=== PATIENT | male | born 1970 | race Caucasian/White ===

== ENCOUNTER 2017-02-26 16:51 | Emergency (ER) | payer SELFPAY ==
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
[2017-02-26] MEDS ORDERED: MUPIROCIN 2% OINT 22GM TUBE TP ONE (17:55)
[2017-02-26] MEDS ORDERED: OPTH IRRIGATION SOLUTION 120 ML BTL OP ONE ×2 (17:58→17:59)
[2017-02-26] MEDS ORDERED: TETRACAINE HCL/PF 5% OPTH SOL OP ONE ×2 (17:58→17:59)
[2017-02-26 18:11] VITALS: BP 138/86
== END 2017-02-26 18:08 | disposition home or self-care (01) ==
LOC: ED 16:51
DX: T20.10XA Burn of first degree of head, face, and neck, unspecified site, initial encounter (principal); T20.212A Burn of second degree of left ear [any part, except ear drum], initial encounter; T20.112A Burn of first degree of left ear [any part, except ear drum], initial encounter; X58.XXXA Exposure to other specified factors, initial encounter; Y93.9 Activity, unspecified; Y99.9 Unspecified external cause status
CPT/HCPCS: 16000; 16020; 99283

== ENCOUNTER 2017-08-03 19:19 | Emergency (ER) | payer SELFPAY ==
[2017-08-03] MEDS ORDERED: LORazepam 2 MG/ML VIAL IVP ONE (19:31)
--- NOTE | 2017-08-03 19:37 | ED Physician Documentation ---
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 Pain is sharp, right sided and radiates into right neck. HX DC 7 years ago with 2-3 stens placed. Sees cardiology at [facility]. Also complains of stabbing pains into left leg. Hyperventilates, complains of hand pain and tingling, wants cuffs removed. Says wants divorce and we should just let him . Given 324 mg asa and nitro x2 per EMS. HX anxiety and kidney stone. Onset: minutes Timing: sudden onset Last known Well Date: 08/03/17 Last Known Well Time: 15:30 (asleep till told hiim she wanted divorce) Context: emotional upset Worsened By: nothing Relieved By: nitroglycerin (eased, not gone) - ROS CONST: none - PAST HX DC risk factors: AMI DVT/PE Risk Factors: none TAD/AAA risk factors: none Neuro deficit: none Lung disease: COPD, other (says his lungs are "long") Surgeries/Procedures: cardiac cath, cardiac stent (2-3?) Allergies/Adverse Reactions: Allergies Allergy/AdvReac Type Severity Reaction Status Date / Time Penicillins Allergy Severe Anaphylaxis Verified 08/03/17 20:46 Home Medications: Ambulatory Orders Medication Instructions Recorded Aspirin EC [Ecotrin] 81 mg PO QD 11/19/12 Clopidogrel Bisulfate [Clopidogrel] 75 mg PO DAILY 11/19/12 Lisinopril [Prinivil] 2.5 mg PO DAILY 11/19/12 Nitroglycerin [Nitrostat] 0.4 mg SL Q5MIN PRN #30 tab.subl 11/19/12 Pravastatin Sodium [Pravastatin 80 mg PO DAILY 11/19/12 Sodium] Spironolactone [Aldactone] 25 mg PO DAILY 11/19/12 - SOCIAL HX Smoking History: quit greater than 1 year, cigarettes (2 PPD 25 years) Alcohol Use: none (denies) Drug Use: none (denies) - FAMILY HX Family HX: other (no significant) - VITAL SIGNS Vital Signs: Vital Signs Temp Pulse Resp BP Pulse Ox 138/86 02/26/17 18:09 - REVIEWED ASSESSMENTS Nursing Assessment Reviewed: Yes Vitals Reviewed: Yes Progress - Progress Progress: 1954, asleep Patient Study Name: ROHITH LEE Date: Aug 03, 2017 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 History: CHEST PAIN, FORMER SMOKER (Hx) Findings: No comparison studies are provided. The cardiac and mediastinal silhouettes are normal. The lungs are clear. There is no evidence of pulmonary infiltrate or pleural effusion. The trachea is midline and the aortic arch contour is normal. The pulmonary vascularity is within normal limits. Impression: No acute cardiopulmonary abnormality. Electronically signed on Aug 03, 2017 8:21:17 PM BRICK KILN WORKER by: Yakelin Sarah [id number], has slept since Ativan. Wakes easily. UDS neg. Serial troponins neg. - EKG/XRAY/CT EKG: NSR, nonspecific ST T wave chg Comments: 90 BPM ED Results Lab/Radiology - Orders Orders: ED Orders Category Date Time Status Continuous EKG monitoring Q1H Care 08/03/17 19:33 Ordered CHEST 1 VIEW [RAD] Stat Exams 08/03/17 Ordered CBC/PLATELET/DIFF Routine Lab 08/03/17 Ordered CMP Routine Lab 08/03/17 Ordered DRUG SCREEN 7 WITH ETHANOL Stat Lab 08/03/17 Ordered TROPONIN I (cTnI) Stat Lab 08/03/17 Ordered URINALYSIS Routine Lab 08/03/17 Ordered LORazepam [Ativan] Med 08/03/17 19:31 Once 1 mg IVP NOW ONE NORMAL SALINE @ 100 MLS/HR(1000ml) Med 08/03/17 20:00 Ordered 0.9 % Sodium Chloride [Normal Saline] 1,000 ml IV Q10H EKG WITH COMPARISON Stat Ther 08/03/17 Ordered Chest Pain Physical Exam - EXAM General Appearance: severe distress (yelling, tachypneic), anxious EENT: eye inspection normal, ENT inspection normal, pharynx normal (Mallampati 2 ) Neck: nml inspection, other (no HJR) Respiratory: chest non-tender, nml breath sounds CVS: reg. rate & rhythm, no murmur, bilateral BP's asymmetrical, other ( peripheral pulses 2+) Abdomen: soft, normal bowel sounds, no distension, non-tender Skin: warm/dry, normal color Extremities: normal range of motion, no evidence of injury, no edema Neuro: CN's nml as tested, motor nml, sensation nml, other (anxious) Discharge Clincal Impression: Anxiety Referrals: Connie Lal MD [Primary Care Provider] - 2 Days Additional Instructions: The Troponin results indicate you were not having heart problems. Follow up with your provider as needed. Condition: Fair Disposition: 01 HOME, SELF-CARE Decision to Admit: NO Decision Time: 22:25
[2017-08-03 19:58] LABS: BASOPHILS % 0.6 (0.0-1.5); EOSINOPHILS % 3.1 % (0.0-6.8); MEAN CORPUSCULAR HEMOGLOBIN 30.8 pg (28.0-34.0); MEAN CORPUSCULAR VOLUME 92.5 fl (80.0-100.0); MONOCYTES % 4.3 % (0.0-11.0); NEUTROPHILS # 4.7 # k/uL (1.4-7.7)
[2017-08-03] MEDS ORDERED: 0.9 % SODIUM CHLORIDE 1,000 ML IV SCH (20:00)
[2017-08-03 20:01] LABS: eGFR (African) > 60; eGFR (Non-African) > 60
[2017-08-03] MEDS ORDERED: 0.9 % SODIUM CHLORIDE 1,000 ML IV ONE (20:03)
[2017-08-03 22:47] VITALS: BP 161/92
[2017-08-04 03:35] LABS: APPEARANCE,URINE CLEAR (CLEAR); COLOR,URINE YELLOW (YELLOW)
[2017-08-04 03:36] LABS: OCCULT BLOOD,URINE NEGATIVE (NEGATIVE); UROBILINOGEN URINE 0.2 Eu (0.2-1.0)
[2017-08-04 03:41] LABS: CANNABINOIDS NEGATIVE ng/mL (< 50); METHYLENEDIOXYMETHAMPHETAMINE NEGATIVE ng/mL (<500)
--- NOTE | 2017-08-04 13:43 | Diagnostic Imaging Report ---
LEA ALEXIS [facility] [address] [facility] [address] [place] [address]. 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 History: CHEST PAIN, FORMER SMOKER (Hx) Findings: No comparison studies are provided. The cardiac and mediastinal silhouettes are normal. The lungs are clear. There is no evidence of pulmonary infiltrate or pleural effusion. The trachea is midline and the aortic arch contour is normal. The pulmonary vascularity is within normal limits. Impression: No acute cardiopulmonary abnormality. Electronically signed on Aug 03, 2017 8:21:17 PM BANQUET HOUSEPERSON by: Yakelin LARSON
== END 2017-08-03 22:37 | disposition home or self-care (01) ==
LOC: ED 19:19
DX: F41.9 Anxiety disorder, unspecified (principal); R07.89 Other chest pain
CPT/HCPCS: 71010; 80053; 80320; 80377; 81002; 84484; 85025; 85610; 93005; J2060; J7030; 96374; 99283; G0480; G0481; S1016

== ENCOUNTER 2017-09-04 23:39 | Emergency (ER) | payer SELFPAY ==
[2017-09-04] MEDS ORDERED: NITROGLYCERIN 0.4 MG TAB.SUBL SL ONE ×2 (23:47→23:48)
[2017-09-04] MEDS ORDERED: ASPIRIN 81 MG CHEW TAB ONE (23:47)
[2017-09-04] MEDS ORDERED: 0.9 % SODIUM CHLORIDE 1,000 ML IV ONE (23:48)
[2017-09-04] MEDS ORDERED: ASPIRIN 81 MG CHEW TAB PO ONE (23:50)
--- NOTE | 2017-09-05 00:04 | ED Physician Documentation ---
Chest Pain - HISTORIAN Historian: patient - HPI Chief Complaint: Chest Pain Onset: hours (1 hour) Last known Well Date: 09/04/17 Last Known Well Time: 23:00 Context: rest, emotional upset Severity: severe (7/10) Quality: pressure, tightness, like prior KS Chest Pain Radiation: no radiation Chest Pain Signs/Symptoms: denies: nausea, diaphoresis, tachypnea, tachycardia, palpitations, weakness Worsened By: nothing Relieved By: nothing Further Comments: yes (47 year old male patient brought in by [facility] staff for complaint of chest pain. Patient states CP started about 1 hour ago. States pain is "like my last KS", denies nausea, denies SOB, c/o radiation to left hand. Patient was at rest when pain started. Has been at [facility] for past 1-2 months. RR 30-32.) - ROS CONST: none MS/LYMPH: none GI/: denies: abdominal pain, vomiting, nausea, diarrhea EYES/ENT: none SKIN/ENDO: none NEURO/PSYCH: headache - PAST HX KS risk factors: hypertension, cardiac disease (10/2010 - stent to LAD; diagnostic cath 2012, 2013, 10/2014 - LAD patent in all studies, no other intervention), other (HLD) DVT/PE Risk Factors: none TAD/AAA risk factors: none Neuro deficit: none GI disease: none Lung disease: none Surgeries/Procedures: cardiac cath Allergies/Adverse Reactions: Allergies Allergy/AdvReac Type Severity Reaction Status Date / Time Penicillins Allergy Severe Anaphylaxis Verified 09/05/17 00:34 Home Medications: Ambulatory Orders Medication Instructions Recorded Aspirin EC [Ecotrin] 81 mg PO QD 11/19/12 Clopidogrel Bisulfate [Clopidogrel] 75 mg PO DAILY 11/19/12 Lisinopril [Prinivil] 2.5 mg PO DAILY 11/19/12 Nitroglycerin [Nitrostat] 0.4 mg SL Q5MIN PRN #30 tab.subl 11/19/12 Pravastatin Sodium [Pravastatin 80 mg PO DAILY 11/19/12 Sodium] Spironolactone [Aldactone] 25 mg PO DAILY 11/19/12 - SOCIAL HX Smoking History: non-smoker Alcohol Use: heavy (history of abuse) - FAMILY HX Family HX: CAD over 55 - VITAL SIGNS Vital Signs: Vital Signs Temp Pulse Resp BP Pulse Ox 161/92 08/03/17 22:43 - REVIEWED ASSESSMENTS Nursing Assessment Reviewed: Yes Vitals Reviewed: Yes Progress - Progress Progress: No change in CP after 2 nitro; chest pain worse with palpation, reproducible. 0035 Call to [facility], reviewed cardiac history and cath reports. Initial intervention 2010 - stent to LAD, diagnostics caths 2011 and 2014 showed patent LAD. Troponin negative at present with normal EKG, no changes as compared with previous. Will keep patient in ER and recheck Trop at 0300. Updated patient on plan of care. Agrees with plan. 0330 Troponin negative. Discharged home with [facility] staff - EKG/XRAY/CT EKG: rhythm (SR, rate 67, no acute changes) ED Results Lab/Radiology - Orders Orders: ED Orders Category Date Time Status Continuous EKG monitoring Q30M Care 09/04/17 23:48 Active Continuous Pulse Oximetry Q30M Care 09/04/17 23:[address] IV Lock 1T Care 09/04/17 23:48 Active CHEST 1VIEW [RAD] Stat Exams 09/04/17 23:53 Ordered CBC/PLATELET/DIFF Stat Lab 09/04/17 23:48 Ordered CMP Stat Lab 09/04/17 23:48 Ordered TROPONIN I (cTnI) Stat Lab 09/04/17 23:48 Ordered Urine drug screen [DRUG SCREEN URINE MEDICAL ONLY] Stat Lab 09/04/17 23:48 Ordered 0.9 % Sodium Chloride [Normal Saline] 1,000 ml Med 09/04/17 23:48 Discontinued IV NOW Aspirin Med 09/04/17 23:47 Discontinued 324 mg .ROUTE .STK-MED ONE Aspirin Med 09/04/17 23:50 Discontinued 324 mg PO NOW ONE Nitroglycerin [Nitroquick] Med 09/04/17 23:47 Discontinued 0.4 mg SL .STK-MED ONE Nitroglycerin [Nitroquick] Med 09/04/17 23:48 Discontinued 0.4 mg SL NOW ONE EKG WITH COMPARISON Stat Ther 09/04/17 23:48 Ordered Chest Pain Physical Exam - EXAM General Appearance: anxious EENT: eye inspection normal, DUNG Respiratory: no resp. distress, nml breath sounds, other (chest pain; reproducible with palpation) CVS: reg. 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
[2017-09-05] MEDS ORDERED: KETOROLAC TROMETHAMINE 30 MG/1ML VIAL IVP ONE (00:07)
[2017-09-05] MEDS ORDERED: NITROGLYCERIN 0.4 MG TAB.SUBL SL ONE (00:07)
[2017-09-05 00:19] LABS: BASOPHILS % 0.4 (0.0-1.5); EOSINOPHILS % 1.6 % (0.0-6.8); MEAN CORPUSCULAR HEMOGLOBIN 30.9 pg (28.0-34.0); MEAN CORPUSCULAR VOLUME 92.5 fl (80.0-100.0); MONOCYTES % 3.7 % (0.0-11.0); NEUTROPHILS # 5.7 # k/uL (1.4-7.7)
--- NOTE | 2017-09-05 00:21 | Diagnostic Imaging Report ---
KP JOSÉ (SKI TOP TRIMMER) - ER [facility] [address] [facility].[address] [id number] Report Submission Date: Sep 05, 2017 12:11:46 AM NORMALIZER Patient Study Name: ROHITH LEE Date: Sep 04, 2017 11:57:49 PM NORMALIZER Modality Type: DX Gender: M Description: CHEST : 70 Institution: [facility] Physician: KP JOSÉ (SKI TOP TRIMMER) - ER Portable chest Clinical history: PT STATES CHEST PAIN X 1 HR Findings: Examination of the chest in single portable AP view demonstrates the lungs to be clear. Cardiovascular and mediastinal silhouettes are within normal limits. Monitor leads superimpose the chest. Impression: 1. Negative chest. Electronically signed on Sep 05, 2017 12:11:46 AM NORMALIZER by: Marc LARSON
[2017-09-05 00:25] LABS: eGFR (African) > 60; eGFR (Non-African) > 60
[2017-09-05 04:02] VITALS: BP 121/63
== END 2017-09-05 03:24 | disposition home or self-care (01) ==
LOC: ED 23:39
DX: R07.89 Other chest pain (principal)
CPT/HCPCS: 71045; 80053; 84484; 85025; J1885; J7030; 96365; 96375; 99283; S1016

== ENCOUNTER 2017-09-08 16:04 | Emergency (ER) | payer SELFPAY ==
[2017-09-08 16:24] VITALS: BP 105/61
--- NOTE | 2017-09-08 16:24 | ED Physician Documentation ---
General Adult - HISTORIAN Historian: patient - HPI Chief Complaint: General Adult Additional Information: Patient was seen in the ED on Sep 03 for chest pain. The next day he noticed that he was having some lesions develop on the facial area. Has been draining some. Has started to have some swelling to the inside cheek area. Had been taking bactrim for two day then today switched to cephalexin today. Has had a fever up to 101 associated with some chills Timing: still present - ROS CONST: denies: fever, chills - PAST HX Past History: hypertension, other (CAD) Other History: denies: diabetes Type 1, diabetes Type 2 Surgeries/Procedures: other (3 stinsts placed) Allergies/Adverse Reactions: Allergies Allergy/AdvReac Type Severity Reaction Status Date / Time Penicillins Allergy Severe Anaphylaxis Verified 09/08/17 16:24 Home Medications: Ambulatory Orders Medication Instructions Recorded Aspirin EC [Ecotrin] 81 mg PO QD 11/19/12 Clopidogrel Bisulfate [Clopidogrel] 75 mg PO DAILY 11/19/12 Lisinopril [Prinivil] 2.5 mg PO DAILY 11/19/12 Nitroglycerin [Nitrostat] 0.4 mg SL Q5MIN PRN #30 tab.subl 11/19/12 Pravastatin Sodium [Pravastatin 80 mg PO DAILY 11/19/12 Sodium] Spironolactone [Aldactone] 25 mg PO DAILY 11/19/12 Cephalexin [Keflex] 500 mg PO QID #28 capsule 09/08/17 - SOCIAL HX Smoking History: chew (stopped) Alcohol Use: none Drug Use: none - FAMILY HX Family History: Yes - VITAL SIGNS Vital Signs: Vital Signs Temp Pulse Resp BP Pulse Ox 121/63 09/05/17 03:25 - REVIEWED ASSESSMENTS Nursing Assessment Reviewed: Yes Vitals Reviewed: Yes Procedures Blade Size: 11 I & D Procedure: betadine prep, sterile dressing applied Progress: 1-2cc of purulent material expressed. Wound explored with hemostat. Small amount of 1/4 inch iodoform packing placed. Wound culture taken. Progress - Progress Progress: Patient was advised that if he has a staph infection cephalexin will not be the best antibiotic for it. He was also advised that there may be cross sensitivity with his penicillin allergy. He insisted that he wanted to take the cphalexin and not switch to something different. General Adult Physical Exam - PHYSICAL EXAM GENERAL APPEARANCE: mild distress EENT: eye inspection normal RESPIRATORY: no resp distress, chest non-tender, breath sounds normal. No: wheezes, rales, rhonchi CVS: reg rate & rhythm, heart sounds normal, equal pulses SKIN: other (2.8cm area or erythema, swelling and tenderness tot he right cheek area. Two smaller areas to the left upper lip area. Small amount of purulent material expressed from the cheek wound. ) NEURO: oriented X3, mood/affect nml, cognition normal Discharge Clincal Impression: Facial abscess Prescriptions: Cephalexin [Keflex] 500 mg PO QID #28 capsule Referrals: Connie Lal MD [Primary Care Provider] - 2 Days Additional Instructions: Try to keep the packing in place for the next two days the remove. Take cephalexin, Keflex, 500mg 4 times a day for the next 7 days. Be aware that if you have a MRSA infection this is not the optimal antibiotic. There is a chance of cross sensitivity of cephalexin with penicillin allergies. If you develop a rash, breathing difficulties or swelling to the tongue/throat return to the ED immediately.If it does not improve you need to follow-up with your primary care provider. Condition: Stable Disposition: 01 HOME, SELF-CARE Decision to Admit: NO Date of Decison to Admit: 09/08/17 Decision Time: 17:20
[2017-09-08] MEDS: ACETAMINOPHEN 500 MG TABLET PO ONE (16:42)
[2017-09-08] MEDS: Lidocaine 1% 5ml(IM or SUTURE)(PAIN CLINIC) IJ ONE (17:19)
== END 2017-09-08 17:30 | disposition home or self-care (01) ==
LOC: ED 16:04
DX: L02.01 Cutaneous abscess of face (principal); I10 Essential (primary) hypertension; I25.10 Atherosclerotic heart disease of native coronary artery without angina pectoris
CPT/HCPCS: 10060; 87070; 87186; 99283